=== PATIENT | female | born 1980 | race Caucasian/White ===

== ENCOUNTER 2022-11-16 20:43 | Emergency (ER) | payer OTHER ==
[~2022-11-16] VITALS: Ht 170.1 cm; Wt 56.2 kg
== END 2022-11-17 01:42 | disposition home or self-care (01) ==
LOC: ED 20:43
DX: S29.012A Strain of muscle and tendon of back wall of thorax, initial encounter (principal); S16.1XXA Strain of muscle, fascia and tendon at neck level, initial encounter; S86.912A Strain of unspecified muscle(s) and tendon(s) at lower leg level, left leg, initial encounter; S46.812A Strain of other muscles, fascia and tendons at shoulder and upper arm level, left arm, initial encounter; R51.9 Headache, unspecified; Z88.0 Allergy status to penicillin; V47.6XXA Car passenger injured in collision with fixed or stationary object in traffic accident, initial encounter; Y93.89 Activity, other specified; Y92.828 Other wilderness area as the place of occurrence of the external cause; Y99.8 Other external cause status

== ENCOUNTER 2023-09-10 06:07 | Emergency (ER) | payer OTHER ==
[~2023-09-10] VITALS: Ht 170.1 cm; Wt 47.6 kg
[2023-09-10] MEDS ORDERED: OMNICEF300 MG PO (06:25)
[2023-09-10] MEDS ORDERED: CEFDINIR 300 MG CAP PO ONE (06:30)
== END 2023-09-10 07:05 | disposition home or self-care (01) ==
LOC: ED 06:07
DX: J02.8 Acute pharyngitis due to other specified organisms (principal); B96.89 Other specified bacterial agents as the cause of diseases classified elsewhere; H92.02 Otalgia, left ear; Z88.0 Allergy status to penicillin; Z88.1 Allergy status to other antibiotic agents

== ENCOUNTER 2023-12-04 10:02 | Emergency (ER) | payer OTHER ==
[~2023-12-04] VITALS: Ht 170.1 cm; Wt 47.6 kg
[~2023-12-04 10:02] MED LIST: OMNICEF300 MG PO
[2023-12-04] MEDS ORDERED: SODIUM CHLORIDE 0.9% 1,000 ML IV ONE (11:50)
[2023-12-04] MEDS ORDERED: Ondansetron Hydrochloride 4 MG/2 ML VIAL IV ONE (11:50)
[2023-12-04 12:06] LABS: EOS # 0.1 10*3/uL (0.0-0.4); EOS % 2.2 % (1.0-4.0); HEMATOCRIT 36.6 % (37.0-47.0); LYMPH # 1.7 10*3/uL (1.3-4.4); LYMPH % 42.2 % (27.0-41.0); MEAN CELL VOLUME 81.7 fl (81.0-99.0); MEAN CORPUSCULAR HGB 26.1 pg (27.0-31.0); MEAN PLATELET VOLUME 10.2 fl (9.6-12.3); MONO # 0.4 10*3/uL (0.1-1.0); NEUT # 1.9 10*3/uL (2.3-7.9); NEUT % 45.4 % (47.0-73.0); PLATELET COUNT AUTOMATED 266 10*3/uL (130-400); RED BLOOD COUNT 4.48 10*6/uL (4.10-5.10); RED CELL DISTRI WIDTH 14.4 % (0-14.5); WHITE BLOOD COUNT 4.1 10*3/uL (4.8-10.8)
[2023-12-04 12:26] LABS: BUN 6 mg/dl (9-23); CHLORIDE 108 mmol/L (98-107); POTASSIUM 4.4 mmol/L (3.4-5.1)
[2023-12-04] MEDS ORDERED: Ondansetron Hydrochloride 4 MG TAB PO ONE (12:30)
[2023-12-04] MEDS ORDERED: Ondansetron4 MG PO (13:03)
[2023-12-04] MEDS ORDERED: OXYCODONE HCL5 MG PO (13:04)
== END 2023-12-04 13:10 | disposition home or self-care (01) ==
LOC: ED 10:02
PROVIDERS: Nurse Practitioner Family
DX: U07.1 COVID-19 (principal); E86.0 Dehydration; Z88.0 Allergy status to penicillin; Z88.1 Allergy status to other antibiotic agents

== ENCOUNTER 2024-01-26 16:46 | Emergency (ER) | payer OTHER ==
[~2024-01-26] VITALS: Ht 170.1 cm; Wt 47.6 kg
[~2024-01-26 16:46] MED LIST changes: +OXYCODONE HCL5 MG PO; +Ondansetron4 MG PO
== END 2024-01-26 18:51 | disposition home or self-care (01) ==
LOC: ED 16:46
DX: B34.9 Viral infection, unspecified (principal); Z20.822 Contact with and (suspected) exposure to COVID-19; F32.A Depression, unspecified

== ENCOUNTER 2024-06-20 09:03 | Emergency (ER) | payer OTHER ==
[~2024-06-20] VITALS: Ht 170.1 cm; Wt 49.9 kg
[2024-06-20] MEDS ORDERED: SODIUM CHLORIDE 0.9% 1,000 ML IV ONE (09:25)
[2024-06-20] MEDS ORDERED: Ondansetron Hydrochloride 4 MG TAB SL ONE (10:20)
[2024-06-20] MEDS ORDERED: IOHEXOL 300 MG/ML 100 ML VIAL IV ONE (11:00)
[2024-06-20 11:16] LABS: HEMATOCRIT 37.5 % (37.0-47.0); MEAN CORPUSCULAR HGB 25.2 pg (27.0-31.0); MEAN CORPUSCULAR HGB CONC 31.5 g/dl (33.0-37.0); MEAN PLATELET VOLUME 10.1 fl (9.6-12.3); PLATELET COUNT AUTOMATED 251 10*3/uL (130-400); RED BLOOD COUNT 4.69 10*6/uL (4.10-5.10); RED CELL DISTRI WIDTH 15.4 % (0-14.5); WHITE BLOOD COUNT 14.1 10*3/uL (4.8-10.8)
[2024-06-20 11:17] LABS: MANUAL DIFF REFLEX YES
[2024-06-20] MEDS ORDERED: IOHEXOL 300 MG/ML 100 ML VIAL ONE (11:18)
[2024-06-20 11:37] LABS: ALKALINE PHOSPHATASE 64 U/L (46-116); BUN 16 mg/dl (9-23); CHLORIDE 109 mmol/L (98-107); SGPT/ALT 15 U/L (5-49); TOTAL PROTEIN 6.9 gm/dL (6.0-8.0)
[2024-06-20 11:46] LABS: BURR CELLS FEW; PLATELET SUFFICIENCY NORMAL (NORMAL); TOTAL CELLS COUNTED 100 #CELLS
[2024-06-20] MEDS ORDERED: Ondansetron4 MG PO (12:03)
== END 2024-06-20 12:19 | disposition home or self-care (01) ==
LOC: ED 09:03
PROVIDERS: Internal Medicine
DX: K52.9 Noninfective gastroenteritis and colitis, unspecified (principal); Z20.822 Contact with and (suspected) exposure to COVID-19; Z88.0 Allergy status to penicillin; Z88.1 Allergy status to other antibiotic agents

== ENCOUNTER 2024-08-11 15:23 | Emergency (ER) | payer SELFPAY ==
[~2024-08-11] VITALS: Ht 170.1 cm; Wt 47.6 kg
[2024-08-11] MEDS ORDERED: BUSPIRONE HCL10 MG PO (15:47)
[2024-08-11] MEDS ORDERED: CITALOPRAM40 MG PO (15:47)
[2024-08-11] MEDS ORDERED: QUETIAPINE FUM100 M3 PO (15:48)
[2024-08-11] MEDS ORDERED: SODIUM CHLORIDE 0.9% 1,000 ML IV ONE (15:55)
[2024-08-11] MEDS ORDERED: diazePAM 5 MG TAB PO ONE (15:55)
[2024-08-11] MEDS ORDERED: Ketorolac Tromethamine 15 MG/ML VIAL IV ONE (16:10)
[2024-08-11 16:29] LABS: BILIRUBIN Negative (Negative); BLOOD 3+ (Negative); CLARITY Clear (Clear); COLOR Yellow (Yellow); GLUCOSE Negative (Negative); KETONE Trace (Negative); LEUKO ESTERASE Negative (Negative); NITRITE Negative (Negative); SPECIFIC GRAVITY <= 1.005 (1.001-1.030); UROBILINOGEN 0.2 E.U./dl (0.0-1.0)
[2024-08-11 16:36] LABS: EPITHELIAL CELLS 0-2; WBC 0-2 wbc/hpf (0-5)
[2024-08-11 16:37] LABS: URINE AMPHETAMINES Negative (1000ng/ml); URINE BARBITURATES Negative (200ng/ml); URINE BENZODIAZEPINES Negative (200ng/ml); URINE CANNABINOIDS (THC) Positive (50ng/ml); URINE COCAINE Negative (300ng/ml); URINE METHADONE Negative (300ng/ml); URINE OPIATES Negative (300ng/ml); URINE PHENCYCLIDINE Negative (25ng/ml)
[2024-08-11 17:07] LABS: BASO % 0.7 % (0.0-1.0); HEMATOCRIT 35.4 % (37.0-47.0); MEAN CELL VOLUME 78.3 fl (81.0-99.0); MEAN CORPUSCULAR HGB 25.7 pg (27.0-31.0); MEAN CORPUSCULAR HGB CONC 32.8 g/dl (33.0-37.0); MEAN PLATELET VOLUME 10.3 fl (9.6-12.3); MONO # 0.3 10*3/uL (0.1-1.0); MONO % 6.7 % (3.0-9.0); NEUT # 3.2 10*3/uL (2.3-7.9); NEUT % 76.4 % (47.0-73.0); PLATELET COUNT AUTOMATED 311 10*3/uL (130-400); RED BLOOD COUNT 4.52 10*6/uL (4.10-5.10); RED CELL DISTRI WIDTH 15.8 % (0-14.5); WHITE BLOOD COUNT 4.2 10*3/uL (4.8-10.8)
[2024-08-11 17:28] LABS: BUN 10 mg/dl (9-23); CHLORIDE 106 mmol/L (98-107); CPK 43 U/L (34-171); POTASSIUM 3.6 mmol/L (3.4-5.1)
[2024-08-11 17:29] LABS: ETHYL ALCOHOL < 3.0 mg/dl (<3)
[2024-08-11] MEDS ORDERED: VISTARIL25 MG PO (18:21)
== END 2024-08-11 18:25 | disposition home or self-care (01) ==
LOC: ED 15:23
PROVIDERS: Emergency Medicine
DX: F43.22 Adjustment disorder with anxiety (principal); Z79.899 Other long term (current) drug therapy; Z88.0 Allergy status to penicillin